=== PATIENT | male | born 1935 | race Caucasian/White ===

== ENCOUNTER 2019-07-03 10:43 | Day surgery (SDC) | payer OTHER ==
[2019-07-02 13:40] VITALS: BMI 25.8
[2019-07-03] MEDS ORDERED: BUPIVACAINE HCL/PF 0.5% (5MG/ML) 10 ML VIAL ONE (13:00)
[2019-07-03] MEDS ORDERED: LIDOCAINE HCL 1%, 10 MG/ML (20ML VIAL) ONE (13:00)
[2019-07-03] MEDS ORDERED: PROPOFOL 20 ML ONE (13:14)
[2019-07-03] MEDS ORDERED: LIDOCAINE HCL/PF 2% SDV 5ML VIAL ONE (13:14)
[2019-07-03] MEDS ORDERED: MIDAZOLAM HCL 2 MG/2 ML SINGLE DOSE VIAL ONE (13:14)
[2019-07-03] MEDS ORDERED: ceFAZolin SODIUM 1 GM VIAL IVPB ONE (13:44)
[2019-07-03] MEDS ORDERED: EPHEDRINE SULFATE/0.9% NACL/PF 50 MG/10 ML SYRINGE NR ONE (13:55)
[2019-07-03] MEDS ORDERED: ceFAZolin SODIUM 1 GM VIAL ONE (13:58)
[2019-07-03] MEDS ORDERED: BUPIVACAINE HCL/PF 0.5% (5 MG/ML) 30 ML VIAL IJ ONE (14:03)
[2019-07-03] MEDS ORDERED: LIDOCAINE HCL 1%, 10 MG/ML (20ML VIAL) PNB ONE (14:03)
[2019-07-03] MEDS ORDERED: LIDO 2%/EPI 1:200000 PRESRVFRE (20 ML SDVIAL) PNB ONE (14:03)
[2019-07-03] MEDS ORDERED: CEPHALEXIN MONOHYDRATE 500 MG CAPSULE (UD) PO SCH ×2 (14:45→15:24)
[2019-07-03 15:51] VITALS: TEMP 98.5
[2019-07-03 16:31] VITALS: BP 130/77; PULSE 57
--- NOTE | 2019-07-03 19:59 | OP ---
DATE OF OPERATION: 07/03/2019 PREOPERATIVE DIAGNOSIS: Mass in left groin. POSTOPERATIVE DIAGNOSIS: Mass in left groin. PROCEDURE: Incision of left groin mass. ANESTHESIA: General supplemented with local. DESCRIPTION OF PROCEDURE: Patient was brought into the operating room where a timeout was performed. IV Ancef administered. The left side of the lower abdomen was shaved and then prepped and draped in the usual sterile fashion. Patient had an approximately 2.5-3 cm in diameter lesion. The edges of the lesion were raised and the cente of the lesion was ulcerated. Using a scalpel, the lesion was excised around its margins and the depth of the lesion such that the excision extended into the subcutaneous fat. The lesion was removed. Hemostasis was obtained with electrocautery. Subcutaneous fat and subcutaneous tissue were then brought together with interrupted 3-0 Vicryl and the skin brought together with 4-0 nylon interrupted vertical mattress sutures. There was no significant blood loss. Next, 10 mL of a 1:1 mix of 0.25 Marcaine and 1% lidocaine was injected at the completion of the case. Patient tolerated the procedure well, left the OR in stable, satisfactory condition. MD RADHA DOTSON/[id number] MTDD
[2019-07-03] MEDS ORDERED: METOPROLOL TARTRATE 25 MG TABLET (FP) PO SCH (22:00)
[2019-07-04] MEDS ORDERED: HYDROCHLOROTHIAZIDE 12.5 MG CAPSULE (FP) PO SCH (10:00)
[2019-07-04] MEDS ORDERED: VALSARTAN 160 MG TABLET (UD) PO SCH (10:00)
[2019-07-04] MEDS ORDERED: FENOFIBRIC ACID 45 MG CAP PO SCH (10:00)
--- NOTE | 2019-07-08 16:06 | PATH ---
Surgical Pathology Report Patient Name: YOMI SINGH [facility]. Rec. #: [id number] /Age/Gender: 1935 (Age: 83) / M Account: [id number] Location: [facility] SUR[facility] Taken: 07/03/2019 Received: 07/04/2019 Reported: 07/08/2019 Physicians: Ed Reed MD Specimen(s) Received LEFT GROIN LESION Clinical History Lesion in groin approximately 2.5 cm x 1 year (looks like a chancre) Final Diagnosis LESION, GROIN, LEFT, EXCISION: BASAL CELL CARCINOMA, ULCERATED, NODULAR AND INFILTRATIVE TYPES. CARCINOMA MEASURES 1.5 CM (GROSS MEASUREMENT). CARCINOMA EXTENDS TO INKED SURGICAL MARGINS. Comment: Immunohistochemical stains performed at [place], [place] ([id number]) and interpreted at [facility] show the tumor is positive for p40, Venkatesh-Ep4, MOC31, and BCL2; while negative for MIKE, supporting the above diagnosis. Positive and negative controls (internal if applicable) show appropriate results. Electronically Signed Catherine Marquez M.D. Gross Description Received in formalin labeled "lesion of left groin," is a 1.6 x 1.3 cm unoriented portion of skin focally excised to depth of 0.8 cm. The epidermal surface displays a 1.5 x 1.1 cm ulcerated lesion involving the radial margins. The base is inked green and the specimen is serially sectioned. The specimen is entirely and sequentially submitted in 4 cassettes. 07/04/2019 saudi07/04/2019
== END 2019-07-03 16:35 | disposition home or self-care (01) ==
LOC: JASU-SURG 10:43
PROVIDERS: ATTEND Urology
PROC: 0JB80ZZ Excision of Abdomen Subcutaneous Tissue and Fascia, Open Approach (ICD-10-PCS; principal; 2019-07-03 13:00)
DX: C44.519 Basal cell carcinoma of skin of other part of trunk (principal)
CPT/HCPCS: 88307-TC; 94760